=== PATIENT | female | born 1980 | race Caucasian/White ===

== ENCOUNTER 2016-11-02 17:08 | Emergency (ER) | payer MEDICAID ==
[~2016-11-02] VITALS: Ht 167.6 cm; Wt 113.4 kg
[~2016-11-02 17:08] MED LIST: NYQUIL
[2016-11-02 17:33] VITALS: BP 131/92
== END 2016-11-02 19:23 | disposition home or self-care (01) ==
LOC: ER 17:18
DX: S86.912A Strain of unspecified muscle(s) and tendon(s) at lower leg level, left leg, initial encounter (principal); Z79.899 Other long term (current) drug therapy; Z87.891 Personal history of nicotine dependence; F12.10 Cannabis abuse, uncomplicated; X58.XXXA Exposure to other specified factors, initial encounter; Y93.89 Activity, other specified; Y99.9 Unspecified external cause status; Y92.89 Other specified places as the place of occurrence of the external cause
CPT/HCPCS: 29505; 73562

== ENCOUNTER 2022-06-25 08:32 | Emergency (ER) | payer MEDICAID ==
[~2022-06-25] VITALS: Ht 167.6 cm; Wt 90.0 kg
[2022-06-25 09:17] VITALS: BP 144/87
[2022-06-25] MEDS ORDERED: ONDANSETRON ODT 4 MG TAB PO ONE (09:45)
[2022-06-25] MEDS ORDERED: SUMAtriptan SUCCINATE 6 MG/0.5 ML VL SC ONE (09:45)
[2022-06-25] MEDS ORDERED: ONDA-144 PO (10:18)
[2022-06-25] MEDS ORDERED: SUMA50TA2 PO (10:18)
== END 2022-06-25 10:21 | disposition home or self-care (01) ==
LOC: ER 08:32
DX: G43.909 Migraine, unspecified, not intractable, without status migrainosus (principal); F17.200 Nicotine dependence, unspecified, uncomplicated; F12.10 Cannabis abuse, uncomplicated; Z87.442 Personal history of urinary calculi
CPT/HCPCS: 96372; 99283; J3030; Q0162

== ENCOUNTER 2023-05-25 18:02 | Inpatient (IN) | payer MEDICAID ==
[~2023-05-25] VITALS: Ht 167.6 cm; Wt 103.5 kg
[~2023-05-25 18:02] MED LIST changes: +ONDA-144 PO; +SUMA50TA2 PO
[2023-05-25 18:55] LABS: Basophils # (auto) 0.1 10 ^3/uL (0-0.2); Eosinophils # (auto) 0.1 10 ^3/uL (0-0.8); Eosinophils % (auto) 0.6 % (0.0-7.0); Hemoglobin 14.7 g/dL (12.2-16.2); Lymphocytes # (auto) 1.8 10 ^3/uL (0.4-5.4); Monocytes # (auto) 0.4 10 ^3/uL (0-1.3)
[2023-05-25 18:57] LABS: Basophils % (auto) 0.5 % (0.0-2.0); Hematocrit 43.7 % (36.0-46.0); Lymphocytes % (auto) 15.1 % (10.0-50.0); Mean Corpuscular Hemoglobin 29.8 pg (28.0-32.0); Mean Corpuscular Hgb Conc. 33.7 g/dL (32.0-36.0); Mean Corpuscular Volume 88.4 fL (80.0-100.0); Monocytes % (auto) 3.6 % (0.0-12.0); Neutrophils # (auto) 9.5 10 ^3/uL (1.6-8.6); Neutrophils % (auto) 80.2 % (37.0-80.0); Red Blood Cells 4.94 10^6/uL (4.0-5.20); Red Cell Distribution Width 13.4 % (11.8-14.3); White Blood Cell 11.9 10^3/uL (4.4-10.8)
[2023-05-25 19:03] LABS: Alanine Aminotransferase 14 U/L (7-40); Albumin 4.5 g/dL (3.2-4.8); Alkaline Phosphatase 67 U/L (46-116); Anion Gap 8.4 (5-15); Aspartate Aminotransferase 11 U/L (13-40); Calcium 9.4 mg/dL (8.5-10.1); Carbon Dioxide 20.6 mmol/L (20-30); Chloride 112 mmol/L (98-107); Glucose 129 mg/dL (74-106); Lipase 48 U/L (12-53); Potassium 3.9 mmol/L (3.5-5.1); Sodium 141 mmol/L (136-145)
[2023-05-25 19:04] LABS: Bilirubin, Total 0.5 mg/dL (0.2-1.0); Total Protein 7.4 g/dL (5.7-8.2)
[2023-05-25 19:05] LABS: BUN/Creatinine Ratio 6.3 (10.0-20.0); Blood Urea Nitrogen < 5 mg/dL (9-23)
[2023-05-25 20:23] LABS: Urine Bacteria FEW /hpf (None Seen); Urine Blood 1+ /uL (Negative); Urine Clarity HAZY (Clear); Urine Color Yellow (Yellow); Urine Mucus FEW (None Seen); Urine Protein, UAD TRACE (Negative); Urine Urobilinogen Normal (Negative); Urine WBC 1 /hpf (0 - 5); Urine pH 5.5 (5.0-8.0)
[2023-05-25] MEDS ORDERED: SODIUM CHLORIDE 0.9% 1,000 ML IV ONE (21:15)
[2023-05-25] MEDS ORDERED: metroNIDAZOLE 500MG/100ML 100 ML IV ONE (21:15)
[2023-05-25] MEDS ORDERED: FAMOTIDINE (10MG/ML) 2ML VL IV ONE (21:15)
[2023-05-25] MEDS ORDERED: MORPHINE SULFATE 4 MG/ML SYR/VIAL IV ONE (21:15)
[2023-05-25] MEDS ORDERED: ONDANSETRON HCL 4 MG/2 ML VIAL IV ONE (21:15)
[2023-05-25] MEDS ORDERED: CIPROFLOXACIN 400MG/200ML 200 ML IV ONE (21:15)
[2023-05-25] MEDS ORDERED: ACETAMINOPHEN 325 MG TAB PO PRN (22:45)
[2023-05-25] MEDS: SOD CHL 0.45% 1,000 ML IV SCH (22:45)
[2023-05-25] MEDS ORDERED: METF-372 PO (23:05)
[2023-05-25] MEDS ORDERED: LISI2.5T47 PO (23:05)
[2023-05-25] MEDS ORDERED: SEMA3TAB2 PO (23:05)
[2023-05-25] MEDS ORDERED: DEXTROSE (50%) 50ML SYRG IV PRN (23:15)
[2023-05-26 04:15] VITALS: PULSE 70; RESP 13; O2SAT 97
[2023-05-26] MEDS: ONDANSETRON HCL 4 MG/2 ML VIAL IV PRN ×4 (04:21→22:17)
[2023-05-26] MEDS: MORPHINE SULFATE INJ 2 MG/ml SYRG IV PRN ×3 (04:22→19:00)
[2023-05-26 06:19] LABS: Basophils # (auto) 0.1 10 ^3/uL (0-0.2); Basophils % (auto) 0.5 % (0.0-2.0); Eosinophils # (auto) 0.2 10 ^3/uL (0-0.8); Eosinophils % (auto) 1.5 % (0.0-7.0); Hematocrit 36.1 % (36.0-46.0); Hemoglobin 12.4 g/dL (12.2-16.2); Lymphocytes % (auto) 26.6 % (10.0-50.0); Mean Corpuscular Hemoglobin 30.6 pg (28.0-32.0); Mean Corpuscular Hgb Conc. 34.3 g/dL (32.0-36.0); Mean Corpuscular Volume 89.2 fL (80.0-100.0); Monocytes # (auto) 0.7 10 ^3/uL (0-1.3); Monocytes % (auto) 5.8 % (0.0-12.0); Neutrophils # (auto) 7.5 10 ^3/uL (1.6-8.6); Neutrophils % (auto) 65.6 % (37.0-80.0); Red Blood Cells 4.05 10^6/uL (4.0-5.20); Red Cell Distribution Width 13.4 % (11.8-14.3); White Blood Cell 11.4 10^3/uL (4.4-10.8)
[2023-05-26 06:21] LABS: Alanine Aminotransferase 12 U/L (7-40); Albumin 3.7 g/dL (3.2-4.8); Alkaline Phosphatase 52 U/L (46-116); Anion Gap 7.4 (5-15); Aspartate Aminotransferase < 8 U/L (13-40); BUN/Creatinine Ratio 9.5 (10.0-20.0); Bilirubin, Total 0.5 mg/dL (0.2-1.0); Blood Urea Nitrogen 7 mg/dL (9-23); Calcium 8.4 mg/dL (8.5-10.1); Carbon Dioxide 20.6 mmol/L (20-30); Chloride 114 mmol/L (98-107); Cholesterol 101 mg/dL (< 200); Glucose 98 mg/dL (74-106); HDL Cholesterol 31 mg/dL (40-59); LDL Cholesterol 57 mg/dL (< 100); Potassium 3.5 mmol/L (3.5-5.1); Sodium 142 mmol/L (136-145); Triglycerides 96 mg/dL (< 150)
[2023-05-26] MEDS: metroNIDAZOLE 500MG/100ML 100 ML IV SCH ×3 (06:45→21:37)
[2023-05-26] MEDS: InsuLIN REG 1unit/0.01ml Soln (100units/ml) SC SCH ×4 (07:00→21:57)
[2023-05-26] MEDS: ACCU-CHEK COMFORT CURVE STRIP VI SCH ×4 (07:23→21:57)
[2023-05-26 07:35] VITALS: PULSE 64; RESP 16; O2SAT 97
[2023-05-26] MEDS: cefTRIAXone 1GM/50ML D5W 50 ML IV SCH (09:30)
[2023-05-26] MEDS: SOD CHL 0.45% 1,000 ML IV SCH ×3 (09:33→22:19)
[2023-05-26] MEDS: HYDROcodone-ACET 5/325MG TAB PO PRN ×2 (09:49→22:43)
[2023-05-26] MEDS ORDERED: LISINOPRIL 5 MG TAB PO SCH (10:00)
[2023-05-26 10:45] VITALS: RESP 16; O2SAT 97
[2023-05-26] MEDS: PANTOPRAZOLE 40 MG/10 ML VIAL INJ IV SCH (10:47)
[2023-05-26 16:47] VITALS: BP 108/67; PULSE 52; RESP 18; TEMP 98.7; O2SAT 95
[2023-05-26 22:00] VITALS: BP 122/78; PULSE 64; RESP 20; TEMP 97.7; O2SAT 95
[2023-05-26] MEDS ORDERED: ATORVASTATIN 20 MG TAB PO SCH (22:00)
[2023-05-27] MEDS: ONDANSETRON HCL 4 MG/2 ML VIAL IV PRN ×2 (03:15→11:04)
[2023-05-27] MEDS: MORPHINE SULFATE INJ 2 MG/ml SYRG IV PRN (03:17)
[2023-05-27 05:00] VITALS: BP 111/73; PULSE 63; RESP 20; TEMP 98.1; O2SAT 95
[2023-05-27] MEDS: SOD CHL 0.45% 1,000 ML IV SCH (06:08)
[2023-05-27] MEDS: metroNIDAZOLE 500MG/100ML 100 ML IV SCH (06:08)
[2023-05-27] MEDS: InsuLIN REG 1unit/0.01ml Soln (100units/ml) SC SCH ×2 (06:10→11:12)
[2023-05-27] MEDS: ACCU-CHEK COMFORT CURVE STRIP VI SCH ×2 (06:10→11:11)
[2023-05-27 06:51] LABS: Basophils # (auto) 0 10 ^3/uL (0-0.2); Basophils % (auto) 0.4 % (0.0-2.0); Eosinophils # (auto) 0.3 10 ^3/uL (0-0.8); Eosinophils % (auto) 3.2 % (0.0-7.0); Hematocrit 35.8 % (36.0-46.0); Hemoglobin 12.2 g/dL (12.2-16.2); Lymphocytes # (auto) 2.7 10 ^3/uL (0.4-5.4); Lymphocytes % (auto) 29.6 % (10.0-50.0); Mean Corpuscular Hgb Conc. 34.1 g/dL (32.0-36.0); Mean Corpuscular Volume 87.9 fL (80.0-100.0); Monocytes # (auto) 0.5 10 ^3/uL (0-1.3); Neutrophils # (auto) 5.6 10 ^3/uL (1.6-8.6); Neutrophils % (auto) 61.8 % (37.0-80.0); Red Blood Cells 4.08 10^6/uL (4.0-5.20); Red Cell Distribution Width 13.4 % (11.8-14.3); White Blood Cell 9.1 10^3/uL (4.4-10.8)
[2023-05-27 07:02] LABS: Alanine Aminotransferase 16 U/L (7-40); Albumin 3.5 g/dL (3.2-4.8); Alkaline Phosphatase 52 U/L (46-116); Anion Gap 4.1 (5-15); Aspartate Aminotransferase 11 U/L (13-40); BUN/Creatinine Ratio 7.8 (10.0-20.0); Bilirubin, Total 0.5 mg/dL (0.2-1.0); Blood Urea Nitrogen 6 mg/dL (9-23); Calcium 8.3 mg/dL (8.7-10.4); Carbon Dioxide 22.9 mmol/L (20-30); Chloride 112 mmol/L (98-107); Glucose 91 mg/dL (74-106); Potassium 3.7 mmol/L (3.5-5.1); Sodium 139 mmol/L (136-145); Total Protein 5.6 g/dL (5.7-8.2)
[2023-05-27 09:00] VITALS: BP 112/72; PULSE 65; RESP 18; TEMP 98.4; O2SAT 94
[2023-05-27] MEDS ORDERED: METR-344 PO (09:37)
[2023-05-27] MEDS ORDERED: HYDROcodone-ACET 10/325MG TAB PO ONE (10:30)
[2023-05-27] MEDS: cefTRIAXone 1GM/50ML D5W 50 ML IV SCH (11:04)
[2023-05-27] MEDS: PANTOPRAZOLE 40 MG/10 ML VIAL INJ IV SCH (11:04)
[2023-05-27 11:22] VITALS: BP 112/72; PULSE 65; RESP 18; TEMP 98.4; O2SAT 94
[2023-05-27 12:19] LABS: Hepatitis C Antibody Negative (Negative)
[2023-05-27 15:40] LABS: Hepatitis B Surface Antigen Negative (Negative)
== END 2023-05-27 13:43 | disposition home or self-care (01) | DRG 244 ==
LOC: ER 18:02 → OVERFLOW 22:41 → WEST WING 05-26 13:20
PROVIDERS: ADMIT Internal Medicine Pulmonary Disease; ATTEND Internal Medicine Pulmonary Disease
DX: K57.32 Diverticulitis of large intestine without perforation or abscess without bleeding (principal); E11.9 Type 2 diabetes mellitus without complications; K52.9 Noninfective gastroenteritis and colitis, unspecified; E78.5 Hyperlipidemia, unspecified; F17.210 Nicotine dependence, cigarettes, uncomplicated; I10 Essential (primary) hypertension; E66.01 Morbid (severe) obesity due to excess calories; R31.9 Hematuria, unspecified; Z87.442 Personal history of urinary calculi; Z90.711 Acquired absence of uterus with remaining cervical stump; Z68.36 Body mass index [BMI] 36.0-36.9, adult
CPT/HCPCS: 36415; 74176; 80053; 80061; 81001; 82962; 83036; 83690; 85025; 86803; 87340; C9113; G0378; J0696; J2405; J3490

== ENCOUNTER 2023-12-03 20:35 | Emergency (ER) | payer MEDICAID ==
[~2023-12-03] VITALS: Ht 167.6 cm; Wt 102.0 kg
[~2023-12-03 20:35] MED LIST changes: +LISI2.5T47 PO; +METF-372 PO; +METR-344 PO; +SEMA3TAB2 PO
[2023-12-03 21:34] LABS: Basophils # (auto) 0.1 10 ^3/uL (0-0.2); Basophils % (auto) 0.5 % (0.0-2.0); Eosinophils # (auto) 0.4 10 ^3/uL (0-0.8); Eosinophils % (auto) 3.8 % (0.0-7.0); Hematocrit 43.1 % (36.0-46.0); Hemoglobin 14.4 g/dL (12.2-16.2); Lymphocytes # (auto) 2.9 10 ^3/uL (0.4-5.4); Lymphocytes % (auto) 25.1 % (10.0-50.0); Mean Corpuscular Hemoglobin 30.2 pg (28.0-32.0); Mean Corpuscular Hgb Conc. 33.4 g/dL (32.0-36.0); Mean Corpuscular Volume 90.3 fL (80.0-100.0); Monocytes # (auto) 0.6 10 ^3/uL (0-1.3); Monocytes % (auto) 5.2 % (0.0-12.0); Neutrophils # (auto) 7.5 10 ^3/uL (1.6-8.6); Neutrophils % (auto) 65.4 % (37.0-80.0); Red Blood Cells 4.77 10^6/uL (4.0-5.20); Red Cell Distribution Width 13.3 % (11.8-14.3); White Blood Cell 11.4 10^3/uL (4.4-10.8)
[2023-12-03 21:36] LABS: Chloride 112 mmol/L (98-107); Potassium 3.9 mmol/L (3.5-5.1); Sodium 137 mmol/L (136-145)
[2023-12-03 21:37] LABS: Anion Gap 3 (5-15); Carbon Dioxide 22 mmol/L (20-30)
[2023-12-03 21:42] LABS: Blood Urea Nitrogen 12 mg/dL (9-23); Glucose 102 mg/dL (74-106)
[2023-12-03 21:43] LABS: CRP High Sensitivity 0.12 mg/dL (<1.0)
[2023-12-03 21:46] LABS: Urine Bacteria FEW /hpf (None Seen); Urine Blood Negative /uL (Negative); Urine Clarity Clear (Clear); Urine Color Yellow (Yellow); Urine Mucus FEW (None Seen); Urine Protein, UAD 1+ (Negative); Urine Specific Gravity 1.028 (1.001-1.035); Urine Urobilinogen Normal (Negative); Urine WBC 5 /hpf (0 - 5); Urine pH 5.5 (5.0-8.0)
[2023-12-03 21:48] VITALS: BP 102/64; PULSE 79; RESP 16; TEMP 98; O2SAT 98
[2023-12-03] MEDS: ACETAMINOPHEN 500 MG TAB PO ONE (21:51)
[2023-12-03 22:02] LABS: Lipase 496 U/L (12-53)
== END 2023-12-04 02:52 | disposition left against medical advice (07) ==
LOC: EDBD 20:35 → ER 20:35
DX: G93.41 Metabolic encephalopathy (principal); I10 Essential (primary) hypertension; E11.9 Type 2 diabetes mellitus without complications; F17.210 Nicotine dependence, cigarettes, uncomplicated
CPT/HCPCS: 36415; 70450; 74176; 80048; 81001; 81025; 83690; 83880; 84484; 85025; 86141; 93005

== ENCOUNTER 2024-01-11 14:17 | Inpatient (IN) | payer MEDICAID ==
[~2024-01-11] VITALS: Ht 167.6 cm; Wt 99.5 kg
[2024-01-11 16:13] LABS: Basophils # (auto) 0.1 10 ^3/uL (0-0.2); Basophils % (auto) 0.6 % (0.0-2.0); Eosinophils # (auto) 0.3 10 ^3/uL (0-0.8); Eosinophils % (auto) 2.5 % (0.0-7.0); Hematocrit 43.4 % (36.0-46.0); Hemoglobin 14.9 g/dL (12.2-16.2); Lymphocytes # (auto) 2.8 10 ^3/uL (0.4-5.4); Mean Corpuscular Hemoglobin 30.7 pg (28.0-32.0); Mean Corpuscular Hgb Conc. 34.3 g/dL (32.0-36.0); Mean Corpuscular Volume 89.6 fL (80.0-100.0); Monocytes # (auto) 0.6 10 ^3/uL (0-1.3); Monocytes % (auto) 5.5 % (0.0-12.0); Neutrophils % (auto) 65.4 % (37.0-80.0); Red Blood Cells 4.84 10^6/uL (4.0-5.20); Red Cell Distribution Width 13.4 % (11.8-14.3); White Blood Cell 10.7 10^3/uL (4.4-10.8)
[2024-01-11 16:14] VITALS: BP 120/76; PULSE 88; RESP 18; O2SAT 98
[2024-01-11 16:37] LABS: Alanine Aminotransferase 27 U/L (7-40); Alkaline Phosphatase 62 U/L (46-116); Anion Gap 3 (5-15); Aspartate Aminotransferase 18 U/L (13-40); BUN/Creatinine Ratio 19.3 (10.0-20.0); Blood Urea Nitrogen 17 mg/dL (9-23); Calcium 9.8 mg/dL (8.7-10.4); Carbon Dioxide 22 mmol/L (20-30); Chloride 113 mmol/L (98-107); Glucose 116 mg/dL (74-106); Lipase 218 U/L (12-53); Potassium 4.4 mmol/L (3.5-5.1); Sodium 138 mmol/L (136-145)
[2024-01-11 16:38] LABS: Albumin 4.4 g/dL (3.2-4.8); Bilirubin, Total 0.5 mg/dL (0.2-1.0)
[2024-01-11] MEDS ORDERED: PANTOPRAZOLE 40 MG/10 ML VIAL INJ IV ONE (17:45)
[2024-01-11] MEDS ORDERED: ONDANSETRON HCL 4 MG/2 ML VIAL IV ONE (17:45)
[2024-01-11] MEDS ORDERED: SODIUM CHLORIDE 0.9% 1,000 ML IVB ONE (17:45)
[2024-01-11] MEDS ORDERED: MORPHINE SULFATE 4 MG/ML SYR/VIAL IV ONE (17:45)
[2024-01-11] MEDS ORDERED: DEXTROSE (50%) 50ML SYRG IV PRN (19:30)
[2024-01-11] MEDS ORDERED: NITROGLYCERIN 0.4 MG SL TAB SL PRN (19:30)
[2024-01-11] MEDS ORDERED: HYDROcodone-ACET 5/325MG TAB PO PRN (19:30)
[2024-01-11] MEDS ORDERED: ONDANSETRON HCL 4 MG/2 ML VIAL IV PRN (19:30)
[2024-01-11] MEDS ORDERED: MORPHINE SULFATE INJ 2 MG/ml SYRG IV PRN (19:30)
[2024-01-11] MEDS ORDERED: ACETAMINOPHEN 325 MG TAB PO PRN (19:30)
[2024-01-11] MEDS ORDERED: DOCUSATE SOD 100 MG CAP PO PRN (19:30)
[2024-01-11] MEDS ORDERED: ACCU-CHEK COMFORT CURVE STRIP VI SCH (22:00)
[2024-01-11] MEDS ORDERED: InsuLIN REG 1unit/0.01ml Soln (100units/ml) SC SCH (22:00)
[2024-01-12] MEDS ORDERED: InsuLIN REG 1unit/0.01ml Soln (100units/ml) SC SCH (07:00)
[2024-01-12] MEDS ORDERED: LISINOPRIL 5 MG TAB PO SCH (10:00)
[2024-01-12] MEDS ORDERED: RYBELSUS 3 MG PO SCH (10:00)
== END 2024-01-12 00:30 | disposition left against medical advice (07) | DRG 282 ==
LOC: ER 14:17 → OVERFLOW 19:41
PROVIDERS: ADMIT Nurse Practitioner Family; ATTEND Nurse Practitioner Family
DX: K85.90 Acute pancreatitis without necrosis or infection, unspecified (principal); K76.0 Fatty (change of) liver, not elsewhere classified; E11.9 Type 2 diabetes mellitus without complications; I10 Essential (primary) hypertension; F17.210 Nicotine dependence, cigarettes, uncomplicated; E78.5 Hyperlipidemia, unspecified; Z79.899 Other long term (current) drug therapy; Z87.442 Personal history of urinary calculi
CPT/HCPCS: 36415; 76705; 80053; 83690; 85025; G0378

== ENCOUNTER 2024-01-18 10:25 | Emergency (ER) | payer MEDICAID ==
[~2024-01-18] VITALS: Ht 167.6 cm; Wt 99.1 kg
[~2024-01-18 10:25] MED LIST changes: -METR-344 PO
[2024-01-18 13:52] LABS: Urine Bacteria MOD /hpf (None Seen); Urine Blood Negative /uL (Negative); Urine Clarity Turbid (Clear); Urine Color Colorless (Yellow); Urine Protein, UAD Negative (Negative); Urine Specific Gravity 1.009 (1.001-1.035); Urine Urobilinogen Normal (Negative); Urine WBC 1 /hpf (0 - 5); Urine pH 5.5 (5.0-9.0)
[2024-01-18 15:04] LABS: Chloride 114 mmol/L (98-107); Potassium 4.1 mmol/L (3.5-5.1); Sodium 138 mmol/L (136-145)
[2024-01-18 15:05] LABS: Anion Gap 3 (5-15); Carbon Dioxide 21 mmol/L (20-30)
[2024-01-18 15:06] LABS: Calcium 9.3 mg/dL (8.7-10.4)
[2024-01-18 15:07] LABS: Basophils # (auto) 0.1 10 ^3/uL (0-0.2); Basophils % (auto) 0.7 % (0.0-2.0); Eosinophils # (auto) 0.5 10 ^3/uL (0-0.8); Eosinophils % (auto) 4.4 % (0.0-7.0); Hematocrit 44.3 % (36.0-46.0); Hemoglobin 14.7 g/dL (12.2-16.2); Lymphocytes # (auto) 2.5 10 ^3/uL (0.4-5.4); Mean Corpuscular Hemoglobin 30.3 pg (28.0-32.0); Mean Corpuscular Hgb Conc. 33.3 g/dL (32.0-36.0); Monocytes # (auto) 0.5 10 ^3/uL (0-1.3); Monocytes % (auto) 4.6 % (0.0-12.0); Neutrophils # (auto) 7.4 10 ^3/uL (1.6-8.6); Neutrophils % (auto) 67.3 % (37.0-80.0); Red Blood Cells 4.87 10^6/uL (4.0-5.20); Red Cell Distribution Width 13.5 % (11.8-14.3)
[2024-01-18 15:10] LABS: Blood Urea Nitrogen 8 mg/dL (9-23); Glucose 99 mg/dL (74-106)
[2024-01-18 15:11] LABS: Lipase 51 U/L (12-53)
[2024-01-18] MEDS: SODIUM CHLORIDE 0.9% 1,000 ML IV ONE (15:18)
[2024-01-18] MEDS: ONDANSETRON ODT 4 MG TAB PO ONE (15:53)
[2024-01-18] MEDS: PANTOPRAZOLE 40 MG/10 ML VIAL INJ IV ONE (15:55)
[2024-01-18] MEDS: MORPHINE SULFATE 4 MG/ML SYR/VIAL IV ONE (15:57)
[2024-01-18] MEDS ORDERED: TAMS-35 PO (17:29)
[2024-01-18] MEDS ORDERED: TRAM50TA2 PO (17:29)
[2024-01-18 17:50] VITALS: BP 109/66; PULSE 65; RESP 18; TEMP 98.2; O2SAT 97
== END 2024-01-18 18:01 | disposition home or self-care (01) ==
LOC: ER 10:25
DX: N20.0 Calculus of kidney (principal); I10 Essential (primary) hypertension; E11.9 Type 2 diabetes mellitus without complications; F17.210 Nicotine dependence, cigarettes, uncomplicated; Z79.899 Other long term (current) drug therapy
CPT/HCPCS: 36415; 74176; 80048; 81001; 83690; 85025; 96361; 96374; 96375; 99285; C9113; J2270; J7030; Q0162

== ENCOUNTER 2024-02-04 09:01 | Emergency (ER) | payer MEDICAID ==
[~2024-02-04] VITALS: Ht 167.6 cm; Wt 98.5 kg
[~2024-02-04 09:01] MED LIST changes: +TAMS-35 PO; +TRAM50TA2 PO
[2024-02-04 10:57] LABS: Urine Bacteria FEW /hpf (None Seen); Urine Blood TRACE /uL (Negative); Urine Clarity Clear (Clear); Urine Color Light-Yellow (Yellow); Urine Mucus FEW (None Seen); Urine Protein, UAD Negative (Negative); Urine Specific Gravity 1.026 (1.001-1.035); Urine Urobilinogen Normal (Negative); Urine WBC 1 /hpf (0 - 5); Urine pH 5.5 (5.0-9.0)
[2024-02-04 11:46] VITALS: BP 105/71; PULSE 83; RESP 16; TEMP 98.3; O2SAT 97
[2024-02-04] MEDS ORDERED: TRAM-626 PO (11:55)
[2024-02-04] MEDS: KETOROLAC TROMETH 60MG/2ML VIAL IM ONE (12:01)
== END 2024-02-04 12:11 | disposition home or self-care (01) ==
LOC: ER 09:01
DX: M54.50 Low back pain, unspecified (principal); E11.9 Type 2 diabetes mellitus without complications; I10 Essential (primary) hypertension; F17.210 Nicotine dependence, cigarettes, uncomplicated; F12.10 Cannabis abuse, uncomplicated; Z79.899 Other long term (current) drug therapy
CPT/HCPCS: 72100; 81001; 82962; 96372; 99284; J1885